=== PATIENT | female | born 1970 | race Caucasian/White ===

== ENCOUNTER → 2018-01-25 | Outpatient (CLI) | payer MEDICARE, OTHER ==
[2014-10-18 15:48] VITALS: BP 125/79
[~2018-01-25] MED LIST: 5 HTP; ASCO500T PO; ATEN25TA PO; BIOT1000 PO; CHOL10003 PO; CLON1TAB PO; CYAN10005 PO; FERR325T58 PO; HYDR25CA PO; IOHEXOL 300 MG/ML 75 ML VIAL. IV ONE; LEVO1CAP PO; LEVO80CA PO; LOXA10CA PO; LOXA25CA PO; MAGN400C PO; NAPR-514 PO; SELE200T10 PO; TRAM50TA PO; ZOLP10TA PO
--- NOTE | 2018-01-25 13:48 | RAD ---
Indication: Palpable abnormality on right, tender to touch. Heart with BB. On antibiotics. Technique: Axial images and coronal and sagittal reformatted images are provided. 75 mL of intravenous Omnipaque 300 was administered without complication. No comparison is available. One or more of the following individualized dose reduction techniques were utilized for this examination: 1. Automated exposure control 2. Adjustment of the mA and/or kV according to patient size 3. Use of iterative reconstruction technique Findings: The included orbital contents are unremarkable. The included paranasal sinuses and mastoid air cells are clear. Parotid and submandibular glands are unremarkable. There is a right thyroid nodule measuring 3.5 x 3.3 cm in size. This is inferior to the area of palpable concern but may be the palpable finding. No additional abnormality immediately underlying the area of palpable concern is identified. There are subcentimeter short axis lymph nodes but no pathologically enlarged lymph nodes along the cervical chains. There is no airway narrowing or mucosal irregularity. There is tracheal deviation at the level of the thyroid mass. Lung apices are clear. There are mild degenerative changes most notable at C5-C6. IMPRESSION: 1. There is no abnormality on the right immediately underlying the BBs placed at the area of palpable concern. More inferior and medial to the area of concern there is a dominant right thyroid nodule measuring 3.5 cm in size for which ultrasound would be recommended. Electronically signed by: Alverto Salazar MD (01/25/2018 1:44 PM) [facility]
== END | disposition home or self-care (01) ==
LOC: US 10:57
PROVIDERS: ATTEND Family Medicine
DX: E04.1 Nontoxic single thyroid nodule (principal); J39.8 Other specified diseases of upper respiratory tract
CPT/HCPCS: 70491; Q9967